=== PATIENT | female | born 1950 | race Two or more races ===

== ENCOUNTER → 2020-02-25 | Outpatient (CLI) | payer OTHER | END | disposition home or self-care (01) | LOC: OFIC 805 10:45 | PROVIDERS: ATTEND Otolaryngology | DX: H93.8X3 Other specified disorders of ear, bilateral (principal); H61.23 Impacted cerumen, bilateral ==

== ENCOUNTER 2025-02-05 10:00 | Day surgery (SDC) | payer OTHER ==
[2025-01-25 08:48] LABS: BASO % 0.5 % (0.1-1.2); EOS # 0.15 (0.04-0.54); EOS % 1.8 % (0.7-7.0); LYMPH # 2.01 (1.18-3.74); LYMPH % 24.0 % (19.3-53.1); MEAN PLATELET VOLUME 11.50 fl (9.4-12.4); MONO # 0.68 (0.24-0.82); MONO % 8.1 % (4.7-12.5); NEUT # 5.46 (1.56-6.13); NEUT % 65.2 % (34.0-71.1); RED CELL DISTRIBUTION WIDTH 12.7 % (11.6-14.4)
[2025-01-25 09:14] LABS: INR 1.01
[2025-01-25 09:32] LABS: URINE BACTERIA 39.6 uL (0.0-1933); URINE EPITHELIAL CELLS 11.9 uL (0.0-38.8); URINE RBC 5.2 uL (0.0-20.8); URINE WBC 16.1 uL (0.0-23.2)
[2025-01-25 09:37] VITALS: BP 150/90
[2025-01-25 09:45] LABS: URINE APPEARANCE Clear; URINE BILIRRUBIN Negative (NEGATIVE); URINE BLOOD Negative; URINE COLOR Yellow; URINE GLUCOSE Negative (NEGATIVE); URINE KETONE Negative (NEGATIVE); URINE LEUKOCYTE Trace; URINE NITRATE Negative; URINE PROTEIN Negative (NEGATIVE); URINE UROBILINOGEN 0.2 E.U./dl
[2025-01-25 09:48] LABS: URINE CAST 0.00 uL (0.0-1.40)
[2025-01-25 10:06] LABS: ALT/SGPT 26.0 U/L (12-78); AST/SGOT 15.0 U/L (15-37); BILIRUBIN TOTAL 0.68 mg/dL (0.3-1.2); BUN CREA RATIO 32.0 (7.0-25.0); CREATININE SERUM 0.59 mg/dL (0.55-1.02); GFR 99.91; GLOBULINA 3.6 G/DL (2.4-3.5); GLUCOSE FASTING 116.0 mg/dL (65-100); OSMOLALITY SERUM 284.0 MOSM/KG (275-295)
[~2025-02-05] VITALS: Ht 152.4 cm; Wt 81.6 kg
[~2025-02-05 10:00] MED LIST: AMLODIPINE BESYL5 MG PO; COZAAR100 MG PO; EZETIMIBE-SIMV1 EAC3 PO; LASIX20 MG PO; METFORMIN HCL500 M3 PO; PROPRANOLOL HCL20 MG PO; SYNTHROID150 MCG PO
[2025-02-05] MEDS ORDERED: CEFAZOLIN SODIUM 1,000 MG VIAL IV SCH ×2 (10:15→11:00)
[2025-02-05] MEDS ORDERED: RINGERS SOLUTION,LACTATED 1,000 ML IV SCH (11:00)
== END 2025-02-05 11:55 | disposition home or self-care (01) ==
LOC: CIR.AMB 10:00
PROVIDERS: ATTEND Specialist
DX: D17.1 Benign lipomatous neoplasm of skin and subcutaneous tissue of trunk (principal)